=== PATIENT | female | born 1930 | race Caucasian/White ===

== ENCOUNTER 2016-06-27 10:46 | Observation (INO) | payer MEDICARE, OTHER ==
[2016-06-27 11:53] LABS: Hematocrit 39 % (35-47); Hemoglobin 12.4 g/dl (12.0-16.0); Mean Corpuscular HGB Conc 32 g/dl (31-36); Mean Corpuscular Hemoglobin 26 pg (27-31); Mean Corpuscular Volume 82 fL (80-97); Mean Platelet Volume 9 um3 (7.4-10.4); Red Blood Count 4.77 10^6/ul (4.0-5.4); Red Cell Distribution Width 16 % (10.5-15); White Blood Count 7.2 10^3/ul (3.5-10.8)
[2016-06-27 12:07] LABS: BUN/Creatinine Ratio 23.8 (8-20); C Reactive Protein 12.97 mg/L (< 5.00); Calcium 9.2 mg/dL (8.6-10.3); EGFR African American 63.6 (>60); EGFR Non-African American 49.5 (>60); Globulin 3.5 g/dL (2-4); Total Bilirubin 0.8 mg/dL (0.2-1.0); Total Protein 7.5 g/dL (6.4-8.9)
[2016-06-27 12:22] LABS: Potassium 4.3 mmol/L (3.5-5.0)
[2016-06-27] MEDS ORDERED: Iodixanol* (CONTRAST) 320 MG/ML 100 ML SDV IV ONE (12:43)
--- NOTE | 2016-06-27 13:51 | RAD ---
CLINICAL HISTORY: Dysphagia. Relevant surgical history includes hysterectomy and appendectomy. COMPARISON: None TECHNIQUE: Contrast enhanced CT examination of the abdomen and pelvis from the lung bases through the initial tuberosities. The patient received 100 mL Visipaque 320 intravenously prior to imaging.The patient received oral contrast as well prior to imaging. FINDINGS: VISUALIZED LUNG BASES: Bilateral breast prostheses are partially visualized. There is moderate enlargement of the heart. Pleural-based linear density is noted at the right lung base most consistent with atelectasis or scarring. There is a calcified granuloma at the right middle lobe. The lungs are otherwise clear. There is no pericardial or pleural effusion. ABDOMEN AND PELVIS: There is a moderate size hiatal hernia. In the portion of the stomach that is above the diaphragm there is a mixed attenuation structure measuring 3.2 cm in greatest axial dimension with a hyperattenuating periphery (axial image 12 and coronal image 55). The liver, spleen, pancreas and adrenal glands are grossly normal in appearance. The gallbladder is surgically absent with clips in the gallbladder fossa.. The kidneys are normal in appearance without focal mass, calcification or signs of hydronephrosis. 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 The bladder measures 13 cm transverse and 13.7 x 9.6 cm in the axial plane yielding an approximate urinary bladder volume of just under 1.4 L. Evaluation of the gastrointestinal tract is limited without oral contrast. The small and large bowel are not distended. There is surgical material at the base of the cecum and the appendix is not discretely visualized. There is no gross retroperitoneal or mesenteric lymphadenopathy. The pelvic viscera is normal in appearance. The abdominal aorta and iliac arteries are normal in course and diameter. Degenerative changes include multilevel loss of intervertebral disc height involving the lower thoracic and lumbar spine.There are no sinister bone lesions. IMPRESSION: 1. There is a moderate size hiatal hernia. In the portion of the herniated fundal stomach there is a 3.3 cm structure with a hyper attenuating rim which potentially could represent a bezoar in the setting of dysphagia. 2. Incidentally noted is an approximate urinary bladder volume of just under 1.4 L. Please correlate to be insensate urinary bladder and/or outlet obstruction. 3. There are additional chronic, degenerative and iatrogenic findings as described in the body of the report.
[2016-06-27 16:44] LABS: Urine Bacteria Absent (Absent); Urine Bilirubin Negative (Negative); Urine Glucose Negative (Negative); Urine Nitrite Negative (Negative)
[2016-06-27] MEDS ORDERED: Ondansetron INJ* 2 MG/ML VIAL IV PRN (16:55)
[2016-06-27] MEDS ORDERED: Enoxaparin(*) 80 MG/0.8 ML SYR SUBCUT SCH (17:00)
[2016-06-27] MEDS: Metoprolol Tartrate IV* 1 MG/ML 5 ML VIAL IV SCH ×2 (18:23→23:51)
[2016-06-27] MEDS: NS 0.9% 1000 ML* 1,000 ML IV SCH (18:23)
[2016-06-27] MEDS ORDERED: Morphine INJ* 2 MG/ML 1 ML SYRINGE IV PRN (20:35)
--- NOTE | 2016-06-27 20:44 | CONS ---
GASTROENTEROLOGY CONSULT: DATE: 06/27/16 REFERRING PHYSICIANS: Shamar Castro, ER; Valeriy Crump. REASON FOR CONSULTATION: Inability to eat and then CT scan of abdomen and pelvis showing a hiatal hernia, possible gastric retention or bezoar, and bladder outlet obstruction. HISTORY: This 86-year-old woman has had trouble formulating a history and just says that she cannot eat or drink. She says this has been going on for some time. When asked about details she began to talk about urinary issues and vaguely other problems. After 5 minutes of her inability to really focus on the history of eating problems, even though she appeared alert, one of her daughters was requested to intercede. The daughter immediately said that all of this started at Mother's Day brunch when she was eating chicken and then since that moment she has been unable to eat or drink. This formulation had not apparently been so concisely given to half a dozen people. She actually had started the history by going back to her urinary complaints of urinary frequency which are still being evaluated at [facility]. She may have had a cystoscopy (nobody really seems to know) and she was prescribed a medication which was said to be too expensive to take. In the emergency room here, her bladder volume was calculated at 1400 cc. An initial attempt to place a catheter has failed. It then comes out that she has had trouble with chicken recurrently for 5 years though it typically lasts a few minutes and there is no emesis and no prior ER visits. She has never told anyone about it (other than her family) and laughs and says she really should not be trying to eat it as it seems to be the only thing that gives her trouble. She has her own teeth. Her daughters confirm that she does not complain of dyspepsia generally. She does take baking soda a couple of times a year. PAST MEDICAL HISTORY: 1. Atrial fibrillation - currently on Eliquis with no history of bleeding. 2. Status post pacemaker placement. 3. History of breast cancer - status post mastectomy. 4. Status post hysterectomy. 5. Status post appendectomy. SOCIAL HISTORY: She has a daughter in the area, Radha John, [phone]. REVIEW OF SYSTEMS: No history of heartburn, hemoptysis, seizures, blood clots, CVA, hepatitis, or rectal bleeding. She does recall having endoscopies about [address] Mayer (evaluating anemia and heme positive stool) at [facility] with "good reports." They are on request. EXAM: She is an elderly woman, alert, regarding one and trying to answer, but giving a somewhat jumbled, disorganized history. She is afebrile. She is spitting into tissues. HEENT exam is otherwise unremarkable. She has no adenopathy. Her lungs are clear. Heart sounds are regular. Breast and pelvic exam is deferred. The abdomen has a palpable bladder and for kindness sake, detailed palpation was only done lightly. There do seem to be some doughy, lipoma-like areas in the abdomen. Bowel sounds are normal. Rectal: Deferred. Extremities show no edema. She has gotten a Lovenox shot. CT scan - shows a hiatal hernia, a possible bezoar, and bladder outlet obstruction. The esophagus is not grossly dilated. IMPRESSION: The history is most suggestive of a foreign body obstruction to the esophagus. She is currently in minimal distress except for the inability to swallow liquids. There is no acute pain and she is handling her secretions She will have endoscopy done within the next 24 hours. She also has significant bladder issue and drainage of that is a priority. [id number]/[facility] #: [id number] MTDD
[2016-06-27] MEDS: NS 0.9% 500 ML BAG* 500 ML IV ONE ×2 (21:28→21:30)
--- NOTE | 2016-06-27 21:28 | PN ---
Progress Note - Progress Note Note: After conversation with US tech & nursing, decision was made to give 500cc IVF bolus and instruct patient not to void in order to have a full bladder for pelvic US to be done at 2300 and be able to discriminate between what appears to be a massive complex pelvic cyst and the urinary bladder.
--- NOTE | 2016-06-27 21:38 | RAD ---
Indication: Evaluate for bezoar. 2 views of the chest including dual energy PA views demonstrates pacemaker leads are in place. Lung duran demonstrate no pleural fluid, pneumonia or pneumothorax. IMPRESSION: No active cardiopulmonary disease is noted.
--- NOTE | 2016-06-27 22:52 | HP ---
HISTORY AND PHYSICAL: DATE OF ADMISSION: 06/27/16 PRIMARY CARE PROVIDER: Dr. Crump. GRIZZLY WORKER: Dr. Julio. CHIEF COMPLAINT: Inability to swallow and keep liquids or food down. HISTORY OF PRESENT ILLNESS: Ms. Moctezuma is an 86-year-old female who comes in with actually 2 complaints, one being lower abdominal pain and the other being the inability to swallow and keep down food or liquid. In terms of the lower abdominal pain, she states this has been going on for a couple of months. She has noted over the last 3 to 4 weeks that she has had firmness and tenderness in her lower abdomen in the midline. She saw Dr. Bueno, urologist out of the [facility], who wanted to place her on medication; however, when the patient went to pick this up, she stated that it was very expensive and she did not in fact buy it. She, however, has been dealing with discomfort in the lower abdomen since then. In terms of the difficulty swallowing, she states that she last ate at approximately 1 p.m. this past Sunday. Since then, she noted as soon as she would swallow anything down whether it be liquid or solid food, she would immediately regurgitate it back up. She states that she has had intermittent issues with swallowing off and on throughout her life; however, nothing quite this severe. She has had no weight loss. She states that she has not really eaten or drank anything since this past Sunday. She even tried to go down to taking only a teaspoon of liquid at a time and even that came immediately back up. The patient states that she has been having loose stools over the last month up to 3 per day. She states her last bowel movement was this past Sunday. She has had no other vomiting. She denies any acid reflux symptoms. PAST MEDICAL HISTORY: 1. Atrial fibrillation. 2. CHF. 3. History of breast cancer. 4. Hypertension. PAST SURGICAL HISTORY: 1. Pacemaker. 2. Mastectomy. 3. Hysterectomy. 4. Appendectomy. 5. Cholecystectomy. MEDICATIONS: 1. Eliquis 2.5 mg p.o. b.i.d. 2. Acetylcarnitine - alpha-lipoic A 1 cap p.o. daily. 3. Amlodipine 5 mg p.o. daily. 4. Valsartan 160 mg p.o. daily. 5. Calcium chloride 20 mEq p.o. daily. 6. Metoprolol XL 50 mg p.o. daily. 7. Multivitamin 1 tab p.o. daily. 8. Vitamin B12 1000 mcg p.o. daily. ALLERGIES: No known drug allergies. FAMILY HISTORY: Mom of heart-related issues. Dad of cancer. SOCIAL HISTORY: The patient is a nonsmoker. She does not drink alcohol. She is a book keeper. She is . She has 3 children. She indicates that her healthcare proxy is her son, Kavon Mesa, phone number is [phone]. REVIEW OF SYSTEMS: The patient denies any fevers. She does state that she feels hungry and thirsty. She denies any chest pain. No palpitations. No cough. She does have shortness of breath with exertion, though this is usual. She has abdominal discomfort as noted above, diarrhea as above. No nausea or vomiting except the immediate regurgitation of any liquid or solid food that she tries to ingest. No hematuria. No dysuria. No focal weakness or sensory loss. No sudden changes in vision. No difficulty with initiating the swallow; however, immediately after swallowing the food, regurgitates right back up. She does complain of bilateral knee pain. She has no rashes. No anxiety or depression. PHYSICAL EXAMINATION GENERAL: The patient is a well-developed, elderly female, lying in bed, in no acute distress. VITAL SIGNS: Blood pressure 150/60, pulse 62, respirations 16, temp 97.3, O2 sat 99% on room air. HEENT: Pupils are equal, round, and reactive to light. Extraocular muscles are intact. Oropharynx is clear. Oral mucosa is dry. There is no submandibular, cervical, or supraclavicular adenopathy. Thyroid is not enlarged. No thyroid nodules are noted. PULMONARY: Lungs are clear to auscultation bilaterally. CARDIAC: Normal S1 and S2. Regular rate and rhythm. I do not appreciate any murmurs. ABDOMEN: Bowel sounds are present. Abdomen is soft, generally nontender; however, an area of firmness is noted in the midline almost half way up to the belly button from the pelvis. This is tender to palpation and makes her feel as if she needs to urinate when pressed upon. MUSCULOSKELETAL: There is no cyanosis or clubbing of the digits. There is full active range of motion. SKIN: Warm and dry. There are no rashes. NEURO: Cranial nerves II through XII are grossly intact. Sensation is intact to light touch throughout. Strength is 5/5 and symmetric in both upper and lower extremities bilaterally. PSYCH: The patient is alert. She is oriented x3. Affect appears appropriate. LABORATORY DATA/DIAGNOSTIC STUDIES: WBC 7.2, hemoglobin 12.4, hematocrit 39, platelets 224. Sodium 143, potassium 4.3, chloride 109, CO2 21, BUN 25, creatinine 1.05, glucose 67, lactic acid 1.2, calcium 9.2. Bilirubin 0.8, AST 17, ALT 7, alk phos 80, CRP 12.97, albumin 4.0. Urinalysis revealed specific gravity of 1.059, 2+ ketones, 2+ blood, trace leukocyte esterase, 1+ rbc. CT of the abdomen and pelvis reveals a moderate size hiatal hernia. In the portion of the herniated fundal stomach, there is a 3.3 cm structure with hyperattenuating rim which potentially could represent a bezoar in the setting of dysphagia and incidentally noted urinary bladder volume of just under 1.4 L was noted. Of note, upon review of the patient's CT scan with a different radiologist, it became clear that the patient in fact has a decompressed urinary bladder and a large cystic lesion likely arising off ovary, not a markedly distended bladder. ASSESSMENT AND PLAN: Ms. Moctezuma is an 86-year-old female who presented to the emergency room with complaints of inability to swallow and keep food or liquid down and found to have potential bezoar in the herniated portion of her stomach. 1. Possible bezoar. The patient was seen by Dr. Henao this evening. The plan is to do EGD tomorrow morning. For now, she will be n.p.o. He also ordered chest x-ray. At this point, the patient understands that she cannot eat or drink anything as she will immediately vomit it back up. We will continue gentle IV fluid hydration. 2. Probable ovarian cystic lesion. Initially, again the patient was read as having a markedly distended bladder with 1.4 L of urine in the bladder; however , this does not appear to be the case. Her bladder actually appears to be decompressed. An attempt at putting a Prather catheter was done twice without success of draining this very large volume. This goes along with the bladder being decompressed and there being another cystic lesion. I have ordered a pelvic ultrasound to try to evaluate if this is rising off an ovary. The patient will likely need a [facility] [facility] evaluation for this, but this can be done as an outpatient. 3. Dehydration with acute kidney injury. The patient's creatinine is mildly elevated though her specific gravity of urine is markedly elevated at 1.059. The patient again indicates that she has not eaten or drank anything in approximately 2 days. She will be on gentle IV fluid hydration with normal saline at 75 mL per hour. She does carry a history of heart failure. However, has not had her diuretics in the last 2 days. We will need to monitor her fluid status carefully. 4. Atrial fibrillation. The patient is currently paced. She will have metoprolol tartrate 5 mg IV q.6 hours standing. I have ordered Lovenox to be given; however, Dr. Henao has asked that this be held until the EGD is complete as she normally takes Eliquis as an outpatient. 5. Hypertension. The patient's blood pressure is moderately elevated; however , she has not had her usual medications. Again, she will have metoprolol for heart rate control. This will also act as blood pressure medication. 6. DVT prophylaxis. According to the Adult Thrombosis Prophylaxis Risk Factor Assessment Guide, the patient has a total risk factor score of 7 making her the highest risk. Again, she will have Lovenox when okayed by Dr. Henao. 7. Code status is full. TIME SPENT: 85 minutes were spent admitting this patient and following up on the potential urinary obstruction/retention. CC: Dr. Crump; Dr. Julio* [id number]/[facility] #: [id number] [facility]ALTH[facility]
[2016-06-28] MEDS: NS 0.9% 1000 ML* 1,000 ML IV SCH (02:38)
[2016-06-28] MEDS: Metoprolol Tartrate IV* 1 MG/ML 5 ML VIAL IV SCH ×2 (04:56→11:36)
[2016-06-28 06:26] LABS: Calcium 8.6 mg/dL (8.6-10.3); EGFR African American 64.3 (>60); Potassium 3.7 mmol/L (3.5-5.0)
--- NOTE | 2016-06-28 08:11 | RAD ---
INDICATION: Pelvic mass COMPARISON: CT June 27, 2016 TECHNIQUE: Longitudinal and transverse scans of the pelvis were obtained. FINDINGS: Uterus: Hysterectomy Free fluid: There is no significant free fluid . Ovaries: There is a multiseptated cystic mass located along the midline which is likely ovarian in origin although given its midline positioning is not clear which ovary this originates from. There is no identifiable solid component. There is no definitive intrinsic vascularity. There may be a small rim of ovarian tissue. The mass measures 13.6 x 0.5 x 13.5 cm. Other: The bladder is decompressed. IMPRESSION: HYSTERECTOMY. LARGE (13.5 CM) MIDLINE, MULTISEPTATED, CYSTIC MASS LIKELY OVARIAN IN ORIGIN
[2016-06-28] MEDS ORDERED: Midazolam* 1 MG/ML 5 ML VIAL (5 MG) ONE (09:38)
[2016-06-28] MEDS ORDERED: fentaNYL* 50 MCG/ML 2 ML VIAL (100 MCG VIAL) ONE (09:38)
[2016-06-28] MEDS ORDERED: amLODIPine TAB* 5 MG PO SCH (11:00)
[2016-06-28] MEDS ORDERED: Valsartan TAB* 160 MG PO SCH (11:00)
[2016-06-28] MEDS ORDERED: Metoprolol Succinate XL TAB* 50 MG PO SCH (11:00)
[2016-06-28 11:56] VITALS: BP 136/58
--- NOTE | 2016-06-29 02:04 | PRO ---
DATE: 06/28/16 - ROOM #[id number] REFERRING PHYSICIAN: Valeriy Crump, DO* PROCEDURE: Upper gastrointestinal endoscopy and removal of impacted chicken from distal esophagus and CLOtest, gastric body. INDICATION: This 86-year-old woman came to the emergency room yesterday stating she could not eat. No specificity was referenced and it was not until her daughters took over the giving the history that was known that just immediately while consuming chicken at a Mother's Day Brunch, she found herself unable to eat. CT scan had been interpreted as showing a bezoar with hiatal hernia. In the hospital, she was not in any acute pain and was handling her secretions. ENDOSCOPIST: Dr. Henao MEDICATIONS: Midazolam 4, fentanyl 37.5. FINDINGS: She is a healthy-appearing, vibrant, older woman, in no distress. She has her own teeth. EGD: Larynx - symmetric, narrow views. Esophagus - easily entered and the mucosa is normal in the upper and mid esophagus. At about 35, a large meat impaction is seen. It is a uniform, single , round, large piece. Several substantial fragments were sheared off with a snare and then the item could be pushed into the gastric fundus. The distal esophagus appeared a little stiff and there was a slight ring with all the small hiatal hernia. There were no active erosions. There was bleeding for a minute or two after advancement of the foreign body, but no deep injury seen. Stomach - diffuse erythema along folds in the body and proximal antrum. A CLOtest was taken. Overall, the contour of the stomach and the rugal pattern appeared normal. Pylorus appeared normal. Duodenum - normal mucosa in the bulb and second to fourth portion. IMPRESSION: 1. Small hiatal hernia. 2. Clinical gastroesophageal reflux disease - she does take baking soda from time to time and the appearance suggest a mildly thickened and elastic esophagus. 3. Esophageal foreign body - resolved and Eliquis can be resumed tomorrow. Her stricture does not appear all that tight and one would think that with appropriate involving cutting and more thorough chewing, she could have whatever she wanted. Chronic PPI treatment is a consideration, but ultimately would probably wait and see how things go. [id number]/[facility] #: [id number] [facility]
[2016-06-29] MEDS ORDERED: Multivitamins/Minerals TAB PO SCH (09:00)
--- NOTE | 2016-06-29 12:40 | DS ---
DISCHARGE SUMMARY: DATE OF ADMISSION: 06/27/16 DATE OF DISCHARGE: 06/28/16 PRIMARY CARE PROVIDER: Dr. Crump. PRINCIPAL DIAGNOSES: 1. Esophageal foreign body (large piece of chicken wedged in the esophagus). 2. Large complex cystic mass of probable ovary. SECONDARY DIAGNOSES: 1. Hypertension. 2. Atrial fibrillation. DISCHARGE MEDICATIONS: 1. Eliquis 2.5 mg p.o. twice daily to be started on 06/29/16. 2. Acetylcarnitine/alpha-lipoic A 1 cap p.o. daily. 3. Amlodipine 5 mg p.o. daily. 4. Valsartan 160 mg p.o. daily. 5. Potassium chloride 20 mEq p.o. daily. 6. Metoprolol XL 50 mg p.o. daily. 7. Multivitamin 1 tab p.o. daily. 8. Vitamin B12 1000 mcg p.o. daily. HOSPITAL COURSE: Ms. Moctezuma is an 86-year-old female who presented to the emergency room with complaints of not being able to swallow and keep fluid or liquid down. Ultimately, she was seen in consultation by Dr. Henao, who recommended EGD to evaluate for foreign body obstruction of the esophagus. This was performed on the morning of 06/28/16. A large piece of poorly chewed chicken was found lodged in the esophagus. He pushed this through to the stomach. There was some mild trauma to the esophagus with this procedure. It was recommended that she not restart her Eliquis until 06/29/16. The patient has been started on a soft diet and tolerating this just fine. The patient has been recommended to continue on a soft diet for the next 1 week, then can resume a regular diet. When eating meat, she has been instructed to chew these very carefully. Also on admission, there was concern for a markedly distended bladder. However , upon further review, it was noted that the bladder was in fact not distended, but decompressed and there was a large complex cystic lesion likely of an ovary. This was based on CT scan performed on admission. A pelvic ultrasound was performed to confirm that this was in fact likely an ovarian cyst. A large 13.5 cm midline multiseptated cystic mass was noted and felt to be likely ovarian in origin. The patient has been informed of this finding. A CA-125 was sent prior to the patient being discharged home. It did come back at 16, after the patient left the hospital. I have sent records to [facility] so than an appointment can be scheduled with them for the next 1 to 2 weeks. It is likely the patient will need to be seen by [facility]/Oncology. The patient understands that this needs very close followup. At this point, the patient is felt to be stable for discharge home. On the day of discharge, the patient was awake, sitting up in bed, eating a pureed diet for lunch. Cardiac exam revealed a normal S1 and S2, regular rate and rhythm. Her lungs were clear to auscultation bilaterally. Her abdomen was soft, nontender, nondistended. There was a firm midline "mass" of the lower abdomen. This was slightly tender to palpation. This was unchanged from the day of admission. The patient again is stable for discharge home. FOLLOWUP CONCERNS: The patient is being discharged home today, 06/28/16. She is to followup with Dr. Crump in the next 4 to 7 days and with [facility] [place] in the next 1 to 2 weeks. ACTIVITY: Activity level is as tolerated. DIET: Soft x1 week, then regular. CONDITION ON DISCHARGE: Stable and improved. TIME SPENT: Thirty-five minutes was spent discharging this patient. CC: Dr. Crump. * [id number]/[facility] #: [id number] [facility]
--- NOTE | 2016-06-30 07:15 | ED ---
aren Contreras Timothy, scribed for Shamar Castro MD on 06/27/16 at 1130 . Throat Pain/Nasal Congestion - HPI Summary HPI Summary: Ella Umaña is an 86 yo female presenting to [facility] with no food or liquid ingestion since 1300 06/25/16, as she states anything she ingests does not go past her epigastrum, and she has to vomit anything she eats as it gets stuck. Her daughters are present in room. She feels dehydrated, and is not constipated. She states she has been having bladder spasms for the past 2 months , and was Dx by Dr. Zayas. she denies any current pain. She denies any Hx of endoscopy. Her MHx includes Breast CA, mastectomy, pacemaker. - History of Current Complaint Chief Complaint: EDAbdPain Time Seen by Provider: 06/27/16 11:12 Hx Obtained From: Patient Onset/Duration: Sudden Onset, Lasting Days, Still Present Severity: Moderate Associated Signs And Symptoms: Positive: FB Sensation - Allergies/Home Medications Allergies/Adverse Reactions: Allergies Allergy/AdvReac Type Severity Reaction Status Date / Time No Known Allergies Allergy Verified 06/27/16 11:00 PMH/Surg Hx/FS Hx/Imm Hx Cardiovascular History: Reports: Hx Atrial Fibrillation, Hx Pacemaker/ICD - Cancer History Cancer Type, Location and Year: breast CA - Surgical History Surgery Procedure, Year, and Place: mastectomy Infectious Disease History: Denies: Traveled Outside the [place] in Last 30 Days - Family History Known Family History: Positive: Cardiac Disease, Diabetes Negative: Hypertension Review of Systems Constitutional: Negative Negative: Fever, Chills Eyes: Negative Negative: Erythema ENT: Negative Negative: Sore Throat Cardiovascular: Negative Negative: Palpitations, Chest Pain Respiratory: Negative Negative: Shortness Of Breath, Cough Positive: Abdominal Pain - epigastric discomfort, unable to eat because things "get stuck", Vomiting Genitourinary: Negative Negative: dysuria, hematuria Musculoskeletal: Negative Positive: Edema - legs Skin: Negative Negative: Rash Neurological: Negative - no dizziness Psychological: Normal All Other Systems Reviewed And Are Negative: Yes Physical Exam - Summary Physical Exam Summary: Constitutional: Well-developed, Well-nourished, Alert. (-) Distressed Skin: Warm, Dry HENT: Normocephalic; Atraumatic Eyes: Conjunctiva normal Neck: Musculoskeletal ROM normal neck. (-) JVD, (-) Stridor, (-) Tracheal deviation Cardio: Rhythm regular, rate normal, Heart sounds normal; Intact distal pulses; The pedal pulses are 2+ and symmetric. Radial pulses are 2+ and symmetric. (-) Murmur Pulmonary/Chest wall: Effort normal. (-) Respiratory distress, (-) Wheezes, (-) Rales Abd: Soft, (+) lower abd tenderness, (-) Distension, (-) Guarding, (-) Rebound Musculoskeletal: (-) Edema Lymph: (-) Cervical adenopathy Neuro: Alert, Oriented x3 Psych: Mood and affect Normal Triage Information Reviewed: Yes Vital Signs On Initial Exam: Initial Vitals Temp Pulse Resp BP Pulse Ox 98.0 F 83 18 164/73 98 06/27/16 10:57 06/27/16 10:57 06/27/16 10:57 06/27/16 10:57 06/27/16 10:57 Vital Signs Reviewed: Yes Diagnostics - Vital Signs Vital Signs Temp Pulse Resp BP Pulse Ox 06/27/16 10:57 98.0 F 83 18 164/73 98 - Laboratory Result Diagrams: 06/27/16 11:20 06/27/16 11:20 Lab Statement: Any lab studies that have been ordered have been reviewed, and results considered in the medical decision making process. EENT Course/Dx - Course Assessment/Plan: Ella umaña is an 86 yo female presenting to [facility] unable to eat or drink as anything she consumes gets stuck. her CT A/P suggests 1. There is a moderate size hiatal hernia. In the portion of the herniated fundal stomach. there is a 3.3 cm structure with a hyper attenuating rim which potentially could represent. a bezoar in the setting of dysphagia. 2. Incidentally noted is an approximate urinary bladder volume of just under 1.4 L. Please correlate to be insensate urinary bladder and/or outlet obstruction. 3. There are additional chronic, degenerative and iatrogenic findings as described in the body of the report. After clinical examination and review of her lab and imaging studies, as well as discussion with Dr. Henao, she will be admitted to [facility] with bezoar, hiatal hernia, and dehydration. - Diagnoses Provider Diagnoses: Bezoar, Hiatal hernia, Dehydration - Provider Notifications Discussed Care of Patient with: 1500 - Dr. Hneao (GI) - discussed Pt condition , recommends Pt for admission to [facility]. Instructed by Provider To: Admit As Inpatient Discharge - Discharge Plan Condition: Stable Disposition: ADMITTED TO [facility] Discharge Disposition Comment: admission for bezoar, hiatal hernia, dehydration Referrals: Valeriy Crump DO [Primary Care Provider] - The documentation as recorded by the aren ortega Timothy accurately reflects the service I personally performed and the decisions made by me, Shamar Castro MD.
== END 2016-06-28 15:00 | disposition home or self-care (01) ==
LOC: ED 10:46 → MED 15:11
PROVIDERS: ADMIT Hospitalist; ATTEND Hospitalist
PROC: 0DC58ZZ Extirpation of Matter from Esophagus, Via Natural or Artificial Opening Endoscopic (ICD-10-PCS; principal; 2016-06-27)
DX: T18.128A Food in esophagus causing other injury, initial encounter (principal); X58.XXXA Exposure to other specified factors, initial encounter; Y92.9 Unspecified place or not applicable; I11.0 Hypertensive heart disease with heart failure; I50.9 Heart failure, unspecified; I48.91 Unspecified atrial fibrillation; N17.9 Acute kidney failure, unspecified; E86.0 Dehydration; Z79.01 Long term (current) use of anticoagulants; Z95.0 Presence of cardiac pacemaker; K44.9 Diaphragmatic hernia without obstruction or gangrene; R19.00 Intra-abdominal and pelvic swelling, mass and lump, unspecified site; Z79.899 Other long term (current) drug therapy; Z85.3 Personal history of malignant neoplasm of breast
CPT/HCPCS: 36415; 71020; 74177; 76856; 80048; 80053; 81003; 81015; 83605; 83690; 85025; 86140; 86304; 87077; 87086; 96372; 99283; A9270-GY; G0378; J1650; J2250; J3010; Q9967

== ENCOUNTER 2017-03-16 07:46 | Day surgery (SDC) | payer MEDICARE, OTHER ==
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
[~2017-03-16 07:46] MED LIST: Buffered Lidocaine 0.9% SYRIN* 5 ML/SYR SYRINGE INTRADERM ONE; Dexamethasone IV* 4 MG/ML 1 ML (4 MG) IV SLOW PU ONE; Famotidine IV* 10 MG/ML 2 ML (20 mg) IV ONE
[2017-03-16] MEDS ORDERED: Dexamethasone IV* 4 MG/ML 1 ML (4 MG) ONE (07:57)
[2017-03-16] MEDS ORDERED: Buffered Lidocaine 0.9% SYRIN* 5 ML/SYR SYRINGE ONE (07:57)
[2017-03-16] MEDS ORDERED: ceFAZolin 2 GM PREMIX (*) 2 GM/50 ML BAG IVPB ONE (07:57)
[2017-03-16] MEDS ORDERED: Famotidine IV* 10 MG/ML 2 ML (20 mg) ONE (07:57)
[2017-03-16] MEDS ORDERED: Midazolam* 1 MG/ML 2 ML VIAL (2 MG) ONE (08:01)
[2017-03-16] MEDS ORDERED: fentaNYL* 50 MCG/ML 2 ML VIAL (100 MCG VIAL) ONE ×2 (08:01→10:52)
[2017-03-16] MEDS ORDERED: Etomidate* 2 MG/ML 10 ML VIAL ONE (08:01)
[2017-03-16] MEDS ORDERED: Propofol* 10 MG/ML 20 ML BTL IV PUSH ONE (08:05)
[2017-03-16] MEDS ORDERED: Lidocaine 1% MPF wEPI 200,000* 30 ML SDV ONE (08:25)
[2017-03-16] MEDS ORDERED: Lidocaine 1% INJ* 10 MG/ML 30 ML SDV ONE (08:25)
[2017-03-16] MEDS ORDERED: Bupivacaine 0.5% SDV PF* 10-30ML VIAL ONE (08:25)
--- NOTE | 2017-03-16 08:26 | PN ---
Progress Note - Progress Note Date of Service: 03/16/17 Note: Surgery Spoke to Joseph from [facility] yesterday. He had heard back from the legal adviser that after a conversation with the pacer ambulatory service representative, it was decided that simply placing a magnet over the pacer during the procedure would suffice for this procedure. Magdalena
[2017-03-16] MEDS ORDERED: Metoprolol Succinate XL TAB* 50 MG PO ONE (08:40)
[2017-03-16] MEDS ORDERED: oxyCODONE/Acetamin 5/325 MG* TAB PO PRN (08:41)
[2017-03-16] MEDS ORDERED: Ondansetron INJ* 2 MG/ML VIAL IV PRN (08:41)
[2017-03-16] MEDS ORDERED: Scopolamine 1.5 mg* PATCH TRANSDERM PRN (08:41)
[2017-03-16] MEDS ORDERED: Naloxone* 0.4 MG/ML 1 ML VIAL IV PRN (08:41)
[2017-03-16] MEDS ORDERED: Rocuronium* 10 MG/ML VIAL ONE (09:02)
[2017-03-16] MEDS ORDERED: Ondansetron INJ* 2 MG/ML VIAL ONE (09:34)
[2017-03-16] MEDS: fentaNYL* 50 MCG/ML 2 ML VIAL (100 MCG VIAL) IV PRN ×2 (10:53→11:17)
[2017-03-16] MEDS ORDERED: HYDROmorphone INJ* 2 MG/ML CARPUJECT SYRINGE ONE (11:07)
[2017-03-16] MEDS: HYDROmorphone INJ* 1 MG/ML CARPUJECT SYRINGE IV PRN ×2 (11:10→11:22)
[2017-03-16] MEDS ORDERED: oxyCODONE/Acetamin 5/325 MG* TAB ONE (11:47)
[2017-03-16 13:46] VITALS: BP 123/57
--- NOTE | 2017-03-16 21:30 | OP ---
CC: [facility]; Dr. Valeriy Crump OPERATIVE REPORT: DATE OF OPERATION: 03/16/17 DATE OF : [birth year] SURGEON: Karen Rangel MD STAKEHOLDER MANAGER: There was no assistant purchasing manager for this case. PRE-OP DIAGNOSIS: Left breast mass. POST-OP DIAGNOSIS: Left breast mass. PROCEDURE: Excision of left breast mass. INDICATIONS: Ella Moctezuma is an 86-year-old woman who presented to the office with a sudden incr ease in the size of her left breast associated with some discomfort. This persisted and was needle a spirated. The needle aspiration showed only blood, but because of the discomfort it was decided to p roceed to the OR to excise the mass. The patient; however, was on Eliquis, so there was a delay whil e ascertaining whether she could tolerate being off Eliquis for the time of the surgery. Once this w as confirmed and the status of her pacemaker was confirmed as well, she was prepared for surgery. DESCRIPTION OF PROCEDURE: She was brought to the operating room, placed on the OR table in a supine position and then given general anesthesia. A magnet was placed over the pacer. The left breast was prepped and draped in the usual sterile fashion. After infiltrating with local anesthetic, a curvil inear incision was made and subcutaneous tissue was divided sharply. The mass was encountered and no munir to be consistent with a large fibrotic hematoma. The breast tissue was very adherent to the mass and was dissected free from the perimeter of the mass using combination of sharp and blunt dissectio n. Small bleeding vessels that were encountered were controlled with suture ligature, ligature, and pressure for the most part. The mass was noted to be very adherent particularly posteriorly, but onc e it was completely out, it was handed off as a specimen. It should be mentioned that in order to ge t this large mass out, the incision had to be extended several times. Once the mass was out of the br east, the wound was inspected for hemostasis which was achieved primarily with the bipolar cautery an d then some excess skin was excised in order to allow better closure of the incision. Then some Surg icel was placed in the wound after the wound was copiously irrigated with saline. Several pieces of Surgicel were placed within the cavity and then closure was accomplished. 0 and 2-0 Polysorb were use d to reapproximate subcutaneous tissue and the skin was closed with a 4-0 Monocryl in the subcuticula r fashion. Steri-Strips and a dry fluffy dressing were applied and held in place with an David wrap. All sponge and instrument counts were correct. The patient tolerated the procedure well and was parham sferred to Recovery in a stable condition. [id number]/[facility] #: [id number]
[2017-03-19] MEDS ORDERED: Scopolamine PATCH Remove* 1 NOTE MISC PATCH OFF ONE (08:42)
== END 2017-03-16 13:47 | disposition home or self-care (01) ==
LOC: OR 07:46
PROVIDERS: ATTEND Surgery
DX: N63.20 Unspecified lump in the left breast, unspecified quadrant (principal); Z85.3 Personal history of malignant neoplasm of breast; I48.91 Unspecified atrial fibrillation; I10 Essential (primary) hypertension; Z79.01 Long term (current) use of anticoagulants; Z95.0 Presence of cardiac pacemaker; Z87.891 Personal history of nicotine dependence
CPT/HCPCS: 88304; A9270-GY; J0690; J1100; J1170; J2001; J2250; J2405; J2704; J3010

== ENCOUNTER → 2017-09-26 16:38 | Emergency (ER) | payer MEDICARE, OTHER ==
[~2017-09-26 16:38] MED LIST changes: +Acetaminophen TAB* 325 MG PO ONE; -Buffered Lidocaine 0.9% SYRIN* 5 ML/SYR SYRINGE INTRADERM ONE; -Dexamethasone IV* 4 MG/ML 1 ML (4 MG) IV SLOW PU ONE; -Famotidine IV* 10 MG/ML 2 ML (20 mg) IV ONE
--- NOTE | 2017-09-26 17:50 | RAD ---
INDICATION: Right knee injury COMPARISON: None TECHNIQUE: AP, lateral, tunnel, and sunrise views were obtained. FINDINGS: There is osteopenia. There is advanced medial joint space narrowing with marginal osteophyte formation. The lateral joint space is preserved. There is moderate patellofemoral osteoarthritis. There is a small joint effusion. IMPRESSION: OSTEOARTHRITIS. SMALL JOINT EFFUSION.
--- NOTE | 2017-09-26 18:45 | RAD ---
INDICATION: Right leg injury COMPARISON: Right ankle same date TECHNIQUE: AP and lateral views were obtained. FINDINGS: There is osteopenia. There is no acute bony change. There is osteoarthritis about the knee. There is mild dependent edema. IMPRESSION: NO ACUTE BONY FINDINGS.
--- NOTE | 2017-09-26 18:45 | RAD ---
INDICATION: Right ankle injury COMPARISON: None TECHNIQUE: AP, lateral, and oblique views were obtained. FINDINGS: The bony structures, joint spaces, and soft tissues are normal for age. IMPRESSION: NEGATIVE EXAMINATION.
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
[2017-09-26 20:06] VITALS: BP 162/98
== END | disposition home or self-care (01) ==
LOC: ED 16:38
DX: M25.571 Pain in right ankle and joints of right foot (principal); M25.561 Pain in right knee; W19.XXXA Unspecified fall, initial encounter; Y92.009 Unspecified place in unspecified non-institutional (private) residence as the place of occurrence of the external cause; I48.91 Unspecified atrial fibrillation; I50.9 Heart failure, unspecified; Z95.0 Presence of cardiac pacemaker
CPT/HCPCS: 99282; A9270-GY